=== PATIENT | male | born 1950 | race Hispanic/Latino ===

== ENCOUNTER 2017-04-03 07:53 | Day surgery (SDC) | payer MEDICAID ==
[~2017-04-03] VITALS: Ht 160 cm; Wt 89.1 kg
[~2017-04-03 07:53] MED LIST: ATOR10TA69 PO; D-ME118S13 PO; FINA5TAB41 PO; LORA2TAB2 PO; METO25TA6 PO; PARO10TA71 PO; SODIUM CHLORIDE 0.9% 1000ML 1,000 ML IV ONE; TAMS0.4C32 PO
[2017-04-03 08:00] VITALS: BP 170/89
[2017-04-03] MEDS ORDERED: PROPOFOL 10 MG/ML 20ML VIAL IV ONE (09:41)
== END 2017-04-03 10:58 ==
LOC: ENDO 07:53 → DAH 07:53 → ENDO 10:58
PROVIDERS: ATTEND Internal Medicine
DX: Z09 Encounter for follow-up examination after completed treatment for conditions other than malignant neoplasm (principal); Z86.010 Personal history of colon polyps; K31.89 Other diseases of stomach and duodenum; K63.5 Polyp of colon; K29.60 Other gastritis without bleeding; K57.30 Diverticulosis of large intestine without perforation or abscess without bleeding; K62.1 Rectal polyp; D12.5 Benign neoplasm of sigmoid colon; D12.0 Benign neoplasm of cecum; D12.2 Benign neoplasm of ascending colon; D12.3 Benign neoplasm of transverse colon; E78.5 Hyperlipidemia, unspecified; E11.9 Type 2 diabetes mellitus without complications; I10 Essential (primary) hypertension; K26.9 Duodenal ulcer, unspecified as acute or chronic, without hemorrhage or perforation; K21.9 Gastro-esophageal reflux disease without esophagitis; Z98.890 Other specified postprocedural states; Z68.34 Body mass index [BMI] 34.0-34.9, adult
CPT/HCPCS: 43239; 45380; 45385; 82948 ×2; 88305; 88312; 88342; A4606; J2704; J7030; G9654

== ENCOUNTER 2018-07-13 21:33 | Emergency (ER) | payer MEDICARE ==
[~2018-07-13 21:33] MED LIST changes: -SODIUM CHLORIDE 0.9% 1000ML 1,000 ML IV ONE
[2018-07-13] MEDS ORDERED: MORPHINE SULFATE 4 MG/1ML SYG ONE (22:22)
[2018-07-13] MEDS ORDERED: ONDANSETRON HCL 4 MG/2 ML VIAL ONE (22:22)
[2018-07-13 22:43] LABS: BASOPHILS % (AUTO) 1.2 % (0.0-5.0); EOSINOPHILS % (AUTO) 1.9 % (0.0-8.0); HEMATOCRIT 43.4 % (42-54); LYMPHOCYTES % (AUTO) 39.7 % (21.0-51.0); MEAN CORPUSCULAR HEMOGLOBIN 29.7 pg (27.0-33.0); MEAN CORPUSCULAR HGB CONC 34.7 g/dL (32.0-36.0); MEAN CORPUSCULAR VOLUME 85.8 fL (79-99); MONOCYTES % (AUTO) 6.1 % (3.0-13.0); NEUTROPHILS % (AUTO) 51.1 % (40.0-77.0); PLATELET COUNT (AUTO) 236 K/uL (130-400); RED BLOOD CELL COUNT(AUTO) 5.06 MIL/uL (4.50-6.20); RED CELL DISTRIBUTION WIDTH 13.3 % (11.0-15.5); WHITE BLOOD COUNT (AUTO) 10.1 K/uL (4.8-10.8)
[2018-07-13 22:54] LABS: CREATININE 1.1 mg/dL (0.5-1.5); POTASSIUM 4.2 mmol/L (3.5-5.1)
[2018-07-13 22:59] LABS: BILIRUBIN,TOTAL 0.2 mg/dL (0.2-1.0); TOTAL PROTEIN, SERUM 7.4 g/dL (6.0-8.3)
== END 2018-07-14 00:47 | disposition home or self-care (01) ==
LOC: EDH 21:33
DX: S13.8XXA Sprain of joints and ligaments of other parts of neck, initial encounter (principal); S09.8XXA Other specified injuries of head, initial encounter; M54.5 Low back pain; E11.9 Type 2 diabetes mellitus without complications; I10 Essential (primary) hypertension; Z90.49 Acquired absence of other specified parts of digestive tract; Z87.891 Personal history of nicotine dependence; W18.39XA Other fall on same level, initial encounter; Y93.01 Activity, walking, marching and hiking; Y92.89 Other specified places as the place of occurrence of the external cause; Y99.8 Other external cause status
CPT/HCPCS: 36415; 70450; 71045; 72125; 72128; 72131; 80053; 82550; 84484; 85025; 93005; 96374; 96375; 99285; J2270; J2405

== ENCOUNTER 2021-11-15 13:36 | Emergency (ER) | payer OTHER, MEDICARE ==
[~2021-11-15] VITALS: Ht 157.5 cm; Wt 81.6 kg
[~2021-11-15 13:36] MED LIST changes: -D-ME118S13 PO; +PROM118S5 PO
[2021-11-15 13:40] VITALS: BP 147/79
[2021-11-15] MEDS ORDERED: KETOROLAC 60 MG VIAL (30MG/ML) IM ONE (14:00)
[2021-11-15] MEDS ORDERED: NAPR-1180 PO (14:54)
[2021-11-15] MEDS ORDERED: CYCL10TA16 PO (14:54)
== END 2021-11-15 15:14 | disposition home or self-care (01) ==
LOC: EDH 13:36
DX: S46.912A Strain of unspecified muscle, fascia and tendon at shoulder and upper arm level, left arm, initial encounter (principal); M19.012 Primary osteoarthritis, left shoulder; E11.9 Type 2 diabetes mellitus without complications; I10 Essential (primary) hypertension; Z79.899 Other long term (current) drug therapy; X50.0XXA Overexertion from strenuous movement or load, initial encounter; Y93.89 Activity, other specified; Y92.89 Other specified places as the place of occurrence of the external cause; Y99.8 Other external cause status
CPT/HCPCS: 99283; 73030; 96372; J1885

== ENCOUNTER 2022-10-27 11:45 | Emergency (ER) | payer MEDICARE, OTHER ==
[~2022-10-27] VITALS: Ht 167.6 cm; Wt 83.9 kg
[~2022-10-27 11:45] MED LIST changes: +CYCL10TA16 PO; +NAPR-1180 PO
[2022-10-27] MEDS ORDERED: ACETAMINOPHEN WITH CODEINE 1 TAB TAB PO ONE (13:00)
[2022-10-27 13:33] LABS: APPEARANCE,URINE CLEAR (CLEAR); BILIRUBIN,URINE NEGATIVE (NEGATIVE); COLOR,URINE LIGHT-YELLOW (YELLOW); GLUCOSE, URINE (UA) NEGATIVE (NEGATIVE); KETONES,URINE NEGATIVE (NEGATIVE); LEUKOCYTE ESTERASE ,URINE NEGATIVE Leu/uL (NEGATIVE); NITRATE,URINE NEGATIVE (NEGATIVE); OCCULT BLOOD,URINE NEGATIVE (NEGATIVE); PROTEIN,URINE NEGATIVE (NEGATIVE); UROBILINOGEN,URINE 0.2 mg/dL (0.2-1.0)
[2022-10-27 13:34] LABS: ADD UA MICROSCOPIC NO
[2022-10-27] MEDS ORDERED: CYCL5TAB PO (13:54)
[2022-10-27 14:51] VITALS: BP 142/64; PULSE 60; RESP 18; O2SAT 99
== END 2022-10-27 15:19 | disposition home or self-care (01) ==
LOC: EDH 11:45
DX: S39.92XA Unspecified injury of lower back, initial encounter (principal); E11.9 Type 2 diabetes mellitus without complications; I10 Essential (primary) hypertension; Z79.899 Other long term (current) drug therapy; X58.XXXA Exposure to other specified factors, initial encounter; Y93.89 Activity, other specified; Y92.89 Other specified places as the place of occurrence of the external cause; Y99.8 Other external cause status
CPT/HCPCS: 72131; 81003

== ENCOUNTER 2023-03-21 14:57 | Observation (INO) | payer OTHER ==
[~2023-03-21] VITALS: Ht 157.5 cm; Wt 82.7 kg
[~2023-03-21 14:57] MED LIST changes: +CYCL5TAB PO
[2023-03-21 15:30] LABS: BASOPHILS # (AUTO) 0.04 K/uL (0.00-0.20); BASOPHILS % (AUTO) 0.4 % (0.0-5.0); EOSINOPHILS # (AUTO) 0.05 K/uL (0.00-0.70); EOSINOPHILS % (AUTO) 0.5 % (0.0-8.0); HEMATOCRIT 46.3 % (42-54); IMMATURE GRANULOCYTE ABSOLUTE 0.03 K/uL (0-1); LYMPHOCYTES # (AUTO) 2.7 K/uL (1.0-4.8); LYMPHOCYTES % (AUTO) 26.7 % (21.0-51.0); MEAN CORPUSCULAR HEMOGLOBIN 29.5 pg (27.0-33.0); MEAN CORPUSCULAR HGB CONC 33.5 g/dL (32.0-36.0); MEAN CORPUSCULAR VOLUME 88.2 fL (79-99); MONOCYTES # (AUTO) 0.6 K/uL (0.1-1.0); MONOCYTES % (AUTO) 5.7 % (3.0-13.0); NEUTROPHILS # (AUTO) 6.7 K/uL (1.8-7.7); NEUTROPHILS % (AUTO) 66.4 % (40.0-77.0); PLATELET COUNT (AUTO) 295 K/uL (130-400); RED BLOOD CELL COUNT(AUTO) 5.25 MIL/uL (4.50-6.20); RED CELL DISTRIBUTION WIDTH 12.8 % (11.0-15.5); WHITE BLOOD COUNT (AUTO) 10.1 K/uL (4.8-10.8)
[2023-03-21 15:38] LABS: APPEARANCE,URINE CLEAR (CLEAR); BILIRUBIN,URINE NEGATIVE (NEGATIVE); COLOR,URINE YELLOW (YELLOW); GLUCOSE, URINE (UA) NEGATIVE (NEGATIVE); KETONES,URINE 10 mg/dL (NEGATIVE); LEUKOCYTE ESTERASE ,URINE NEGATIVE Leu/uL (NEGATIVE); NITRATE,URINE NEGATIVE (NEGATIVE); OCCULT BLOOD,URINE NEGATIVE (NEGATIVE); PH,URINE 5.5 (5.0-8.0); PROTEIN,URINE 30 mg/dL (NEGATIVE); UROBILINOGEN,URINE 0.2 mg/dL (0.2-1.0)
[2023-03-21 15:40] LABS: ADD UA MICROSCOPIC YES
[2023-03-21 15:43] LABS: BACTERIA,URINE RARE /HPF (None Seen); MUCUS,URINE FEW LPF (None Seen); RBC,URINE 0-1 /HPF (0-1); SQUAMOUS EPITHELIAL CELL,UR RARE /HPF (0-2)
[2023-03-21 15:46] LABS: CREATININE 1.2 mg/dL (0.5-1.5); POTASSIUM 4.6 mmol/L (3.5-5.1)
[2023-03-21 15:50] LABS: ALBUMIN 4.4 g/dL (3.5-5.0); BILIRUBIN,TOTAL 0.7 mg/dL (0.2-1.0); TOTAL PROTEIN, SERUM 8.6 g/dL (6.0-8.3)
[2023-03-21] MEDS ORDERED: 0.9%NACL 1000ML 1,000 ML IV ONE ×2 (16:00→21:30)
[2023-03-21] MEDS ORDERED: PANTOPRAZOLE 40 MG/VIAL IVP ONE (17:30)
[2023-03-21] MEDS ORDERED: IOHEXOL-350 75 ML VIAL IV ONE (18:57)
[2023-03-21] MEDS ORDERED: ACETAMINOPHEN 325 MG TAB PO ONE (19:00)
[2023-03-21] MEDS ORDERED: CEFTRIAXONE 2GM VIAL IVPB ONE (21:30)
[2023-03-22] MEDS ORDERED: MORPHINE 2 MG SYG IV PRN (03:00)
[2023-03-22] MEDS ORDERED: POTASSIUM CHLORIDE 20MEQ/100ML 100 ML IV PRN (03:00)
[2023-03-22] MEDS ORDERED: MAGNESIUM 2GM PREMIX 50ML 50 ML IV PRN (03:00)
[2023-03-22] MEDS ORDERED: POTASSIUM CHLORIDE 10% ELIXIR 20 MEQ/15 ML UDCUP PO PRN (03:00)
[2023-03-22] MEDS ORDERED: ACETAMINOPHEN 325 MG TAB PO PRN ×2 (03:00)
[2023-03-22] MEDS ORDERED: ONDANSETRON 4MG INJ IV PRN (03:00)
[2023-03-22] MEDS ORDERED: MORPHINE 4 MG SYG IV PRN (03:00)
[2023-03-22] MEDS ORDERED: LACTATED RINGERS IV ONE (03:00)
[2023-03-22] MEDS ORDERED: KCL 20 MEQ ERTAB PO PRN (03:00)
[2023-03-22 07:01] LABS: BASOPHILS # (AUTO) 0.03 K/uL (0.00-0.20); BASOPHILS % (AUTO) 0.3 % (0.0-5.0); EOSINOPHILS # (AUTO) 0.18 K/uL (0.00-0.70); HEMATOCRIT 38.4 % (42-54); IMMATURE GRANULOCYTE ABSOLUTE 0.03 K/uL (0-1); LYMPHOCYTES % (AUTO) 33.8 % (21.0-51.0); MEAN CORPUSCULAR HEMOGLOBIN 29.4 pg (27.0-33.0); MEAN CORPUSCULAR HGB CONC 33.6 g/dL (32.0-36.0); MEAN CORPUSCULAR VOLUME 87.5 fL (79-99); MONOCYTES # (AUTO) 0.7 K/uL (0.1-1.0); MONOCYTES % (AUTO) 7.4 % (3.0-13.0); NEUTROPHILS % (AUTO) 56.2 % (40.0-77.0); PLATELET COUNT (AUTO) 255 K/uL (130-400); RED BLOOD CELL COUNT(AUTO) 4.39 MIL/uL (4.50-6.20); WHITE BLOOD COUNT (AUTO) 8.9 K/uL (4.8-10.8)
[2023-03-22 07:13] LABS: MAGNESIUM 1.9 mg/dL (1.80-2.40); PHOSPHORUS 3.5 mg/dL (2.5-4.9); POTASSIUM 3.9 mmol/L (3.5-5.1)
[2023-03-22 07:18] LABS: HEMOGLOBIN A1C 7.1 % (4.0-6.0)
[2023-03-22] MEDS: INSULIN HUMULIN R 100 UNIT/ML 3ML SQ SCH ×4 (07:30→20:29)
[2023-03-22 08:00] VITALS: BP 170/75; PULSE 84; RESP 18
[2023-03-22] MEDS: ENOXAPARIN SODIUM 40 MG/0.4 ML SYRINGE SQ SCH (09:45)
[2023-03-22] MEDS: FAMOTIDINE 20MG TAB PO SCH (09:45)
[2023-03-22] MEDS ORDERED: HYDRALAZINE 20MG/ML VIAL IV PRN (11:00)
[2023-03-22] MEDS ORDERED: LABETALOL 20MG VIAL IV PRN (11:00)
[2023-03-22] MEDS ORDERED: HYDRALAZINE 20MG/ML VIAL ONE (11:08)
[2023-03-22] MEDS: LOSARTAN 50 MG TABLET PO SCH ×2 (11:09→20:25)
[2023-03-22 12:02] VITALS: BP 170/68; PULSE 65; RESP 17
[2023-03-22] MEDS ORDERED: METF-446 PO (14:48)
[2023-03-22] MEDS ORDERED: ATOR10 PO (14:48)
[2023-03-22] MEDS ORDERED: GLIP-162 PO (14:48)
[2023-03-22] MEDS ORDERED: ICOS1CAP2 PO (14:48)
[2023-03-22 15:59] VITALS: BP 135/77; PULSE 75; RESP 14
[2023-03-22 19:55] VITALS: BP 150/84; PULSE 64; RESP 13
[2023-03-22] MEDS ORDERED: LORA2TAB80 PO (20:02)
[2023-03-22 20:50] VITALS: BP 159/71; PULSE 70; RESP 20
[2023-03-23 00:32] VITALS: BP 143/80; PULSE 69; RESP 19
[2023-03-23 03:51] LABS: BASOPHILS # (AUTO) 0.03 K/uL (0.00-0.20); BASOPHILS % (AUTO) 0.3 % (0.0-5.0); EOSINOPHILS # (AUTO) 0.16 K/uL (0.00-0.70); EOSINOPHILS % (AUTO) 1.8 % (0.0-8.0); HEMATOCRIT 39.6 % (42-54); IMMATURE GRANULOCYTE ABSOLUTE 0.02 K/uL (0-1); LYMPHOCYTES # (AUTO) 3.2 K/uL (1.0-4.8); MEAN CORPUSCULAR HEMOGLOBIN 29.3 pg (27.0-33.0); MEAN CORPUSCULAR HGB CONC 33.6 g/dL (32.0-36.0); MEAN CORPUSCULAR VOLUME 87.2 fL (79-99); MONOCYTES # (AUTO) 0.6 K/uL (0.1-1.0); MONOCYTES % (AUTO) 7.2 % (3.0-13.0); NEUTROPHILS # (AUTO) 4.8 K/uL (1.8-7.7); NEUTROPHILS % (AUTO) 54.5 % (40.0-77.0); PLATELET COUNT (AUTO) 268 K/uL (130-400); RED BLOOD CELL COUNT(AUTO) 4.54 MIL/uL (4.50-6.20); RED CELL DISTRIBUTION WIDTH 13.2 % (11.0-15.5); WHITE BLOOD COUNT (AUTO) 8.8 K/uL (4.8-10.8)
[2023-03-23 04:22] VITALS: BP 132/61; PULSE 62; RESP 20
[2023-03-23] MEDS: INSULIN HUMULIN R 100 UNIT/ML 3ML SQ SCH (06:17)
[2023-03-23 07:55] VITALS: O2SAT 100
[2023-03-23 08:00] VITALS: BP 104/54; PULSE 55; RESP 18
[2023-03-23] MEDS: FAMOTIDINE 20MG TAB PO SCH (09:42)
[2023-03-23] MEDS: LOSARTAN 50 MG TABLET PO SCH (09:42)
[2023-03-23] MEDS: ENOXAPARIN SODIUM 40 MG/0.4 ML SYRINGE SQ SCH (09:42)
[2023-03-23 12:00] VITALS: BP 140/72; PULSE 71; RESP 20
[2023-03-23] MEDS ORDERED: LOSA-418 PO (14:21)
== END 2023-03-23 15:15 | disposition home or self-care (01) ==
LOC: EDH 14:57 → EDHIP 03-22 00:51 → INTOOBSV 03-22 00:51 → 4BH 03-22 20:33
PROVIDERS: ADMIT Internal Medicine; ATTEND Internal Medicine
DX: I11.9 Hypertensive heart disease without heart failure (principal); R91.8 Other nonspecific abnormal finding of lung field; R79.89 Other specified abnormal findings of blood chemistry; E11.9 Type 2 diabetes mellitus without complications; N40.0 Benign prostatic hyperplasia without lower urinary tract symptoms; F41.9 Anxiety disorder, unspecified; F32.A Depression, unspecified; R07.9 Chest pain, unspecified; I95.9 Hypotension, unspecified; G89.29 Other chronic pain; Z79.899 Other long term (current) drug therapy
CPT/HCPCS: 96375; 96361 ×2; 99285; 83735 ×2; 84484 ×2; 80053; 83690; 85025 ×3; 85378; 87040 ×2; 83605 ×2; 81001; 36415 ×3; 71045; 71270; 76705; 93005 ×2; 96372 ×2; 96365; 96366; 83036; 84100; 80048 ×2; 83880; 82948 ×4; 93970; 84145; J7030 ×2; J0696; C9113; Q9967; J3475; J0360; J1650 ×2; G0378 ×2

== ENCOUNTER 2024-11-25 19:33 | Emergency (ER) | payer OTHER, MEDICAID ==
[~2024-11-25] VITALS: Ht 172.7 cm; Wt 83.0 kg
[~2024-11-25 19:33] MED LIST changes: +ATOR10 PO; -ATOR10TA69 PO; -CYCL10TA16 PO; -CYCL5TAB PO; +CYCL5TAB3 PO; +GLIP-300 PO; +ICOS1CAP2 PO; -LORA2TAB2 PO; +LOSA-418 PO; +METF-446 PO; -NAPR-1180 PO; -PROM118S5 PO
--- NOTE | 2024-11-25 20:18 | ERN ---
ED Note History of Present Illness Stated Complaint: C/O RT KNEE PAIN, LOWER BACK PAIN AFTER FALL Chief Complaint: Mechanical Fall Time Seen by MD: 19:37 Dictation: 74-year-old male presents to ER complains of falling while at the store. He says he attempted to carry a 50 lb dog food bag but he stepped on some dog food that was on the floor and lost his balance and fell. Now has right knee pain a nd low back pain. Allergies: Coded Allergies: No Known Allergies (Unverified Allergy, Unknown, 04/02/17) Home Meds Active Scripts Naproxen (Naproxen) 375 Mg Tablet, 375 MG PO BID for 10 Days, #20 TAB 0 Refills Prov:ANNY PANTOJA NP 11/25/24 Losartan Potassium (Cozaar) 50 Mg Tablet, 50 MG PO BID, #60 TAB 0 Refills Prov:CRUZ ALVARENGA MD 03/23/23 Cyclobenzaprine HCl (Cyclobenzaprine HCl) 5 Mg Tablet, 5 MG PO TID for 3 Days, #9 TAB Prov:ERICK ELDRIDGEP 10/27/22 Reported Medications Icosapent Ethyl (Icosapent Ethyl) 1 Gram Capsule, 2 GM PO BID, CAP 03/22/23 Atorvastatin Calcium (LIPITOR) 20 Mg Tab, 20 MG PO HS, TAB 03/22/23 Glipizide (Glipizide ER) 5 Mg Tab.er.24, 5 MG PO DAILY 03/22/23 Metformin HCl (Metformin HCl) 1,000 Mg Tablet, 1000 MG PO BID, TAB 03/22/23 Paroxetine HCl (Paroxetine HCl) 10 Mg Tablet, 10 MG PO DAILY, TAB 04/02/17 Finasteride (Finasteride) 5 Mg Tablet, 5 MG PO DAILY, TAB 04/02/17 Metoprolol Tartrate (Metoprolol Tartrate) 25 Mg Tablet, 25 MG PO BID, TAB 04/02/17 Tamsulosin HCl (Tamsulosin HCl) 0.4 Mg Cap.er.24h, 0.4 MG PO DAILY, CAPSULE. 04/02/17 Past Medical History Past Medical History: Diabetes-Type II, Hypertension Surgical History: Appendectomy Surgical History Other: NECK Family History: Negative Social History: Negative Review of System Dictation Constitutional: Negative for fever,chills, and weight loss Eyes: Negative for injury, pain,redness, and discharge ENT: Negative for injury,pain or swelling Cardiovascular: Negative for chest pain, palpitations, and edema Respiratory: Negative for shortness of breath, cough, wheezing, and pleuritic chest pain Abdomen/GI: Negative for abdominal pain, nausea, vomiting, diarrhea, and constipation Back: Positive for pain : Negative for injury, bleeding and discharge MS/Extremity: Positive for injury to right knee Skin: Negative for rash, and discoloration Neuro: Negative for headache, weakness, numbness, tingling, and seizure Psych: Negative for suicide ideation, homicidal ideation, and hallucinations Allergy/Immunology: Negative for hives, rash, and allergies ALL SYSTEMS NEGATIVE, EXCEPT NOTED ABOVE. Initial Vital Sign VS Vital Signs Date Time Temp Pulse Resp B/P (MAP) Pulse Ox O2 Delivery O2 Flow Rate FiO2 11/25/24 19:35 97.9 96 20 117/70 100 Room Air Physical Exam Dictation General: awake, alert, NAD Head/Face: Normocephalic, atraumatic Eyes: PERRL, EOMI, vision at baseline ENT: oral cavity clear, TMs clear, no signs of infection Neck: Trachea midline, supple, no nuchal rigidity Cardiovascular: RRR, normal S1/S2, No MRGs, no JVD Respiratory: CTAB, no respiratory distress, No rales or wheezes Abdomen: Soft, non-tender, non-distended, normal bowel sounds, no guarding or rebound. Skin: Warm, dry, normal turgor, no rash MS/Extremity: Pulses equal, no cyanosis, neurovascular intact, pain with range of motion to right knee and low back Neuro: COAx4, GCS 15, strength 5/5, CN 2-12 intact, normal cerebellar exam, normal gait, Psych: Normal behavior, mood, and affect normal Results (Laboratory/Radiology) X-RAY Comment: EXAM: XR Knee, 3 Views. CLINICAL HISTORY: 74 year old male with fall and pain. COMPARISON: None provided. FINDINGS: BONES: No acute fracture or focal osseous lesion. JOINTS: No dislocation. The joint spaces are normal. SOFT TISSUES: The soft tissues are unremarkable. IMPRESSION: 1. No acute osseous abnormality. : CR Lumbar Spine, 3 views CLINICAL HISTORY: Fall. Pain. COMPARISON: CT lumbar spine dated 10/27/2022. FINDINGS: Mild levoscoliosis of the lumbar spine. Mild osteopenia. Moderate spondylosis and mild degenerative disc space narrowing at multiple levels, most pronounced at L3-L4 and L5-S1. Normal vertebral body heights. No acute fracture. Atherosclerotic vascular calcification is present. IMPRESSION: No acute fracture. Mild levoscoliosis. Osteopenia and degenerative changes. No gross changes within the limits of cross-modality comparison. Course ED Course Orders Procedure Category Date Status Time Knee 3vws Rt RAD 11/25/24 Resulted 19:41 Lumbar Spine 2-3vws RAD 11/25/24 Resulted 19:41 Ketorolac PHA 11/25/24 Complete Tromethamine 30mg/Ml 20:30 Current Medications Medications (Trade) Dose Ordered Sig/Jewel Route PRN Reason Start Time Stop Time Status Last Admin Dose Admin Ketorolac Tromethamine (toRADol) 30 mg ONCE ONCE IM 11/25/24 20:30 11/25/24 20:31 DC Vital Signs Date Time Temp Pulse Resp B/P (MAP) Pulse Ox O2 Delivery O2 Flow Rate FiO2 11/25/24 19:35 97.9 96 20 117/70 100 Room Air Medical Decision Making MDM 74-year-old male presents to ER complains of falling while at the store. He says he attempted to carry a 50 lb dog food bag but he stepped on some dog food that was on the floor and lost his balance and fell. Now has right knee pain and low back pain. MDM: Differential diagnosis: Fracture, contusion, back strain, Rationale: Tests considered and ordered secondary to shared decision making include: labs, ECG and radiology Previous outside records reviewed: Old ER visits. Risk of complication and/or morbidity or mortality of patient management: None Medications-Per medication reconciliation Need for hospitalization: Patient does NOT meet criteria for hospitalization. Need for emergency major/minor surgery: No There are no social concerns with this patient. Prescription drug management Prescriptions will include symptomatic care Patient's prior external medical records from other ER visits were reviewed by me as indicated. Prior testing and results from previous visits were reviewed. Prior tests were taken into account with medical decision making and resource utilization, independent historian/historians were used to obtain complete medical history. I independently interpreted the test that were performed, results were reviewed by me and considered findings on radiology if ordered. Patient VSS, NAD, nontoxic, stable for discharge. Pt given discharge instructions in layman terms and understood, all questions answered. Pt will follow up with PCP and return to the ER if worse. DX & DISP Disposition: Discharge Departure Impression: Primary Impression: Fall Additional Impressions: Back pain, Contusion of right knee Condition: Stable Scripts Naproxen (Naproxen) 375 Mg Tablet 375 MG PO BID for 10 Days, #20 TAB 0 Refills Prov: ANNY PANTOJA NP 11/25/24 Additional Instructions: NO FRACTURES ON YOUR XRAYS. FOLLOW-UP WITH YOUR PCP IN 24-72 HOURS AND IN THE EVENT IF SYMPTOMS WORSEN OR AN EMERGENCY OVERNIGHT REPORT TO THE ED IMMEDIATELY Referrals: GUTIERREZ JACKSON (PCP) ANNY PANTOJA NP Nov 25, 2024 20:18
--- NOTE | 2024-11-25 21:25 | HMCIMG ---
EXAM: XR Knee, 3 Views. CLINICAL HISTORY: 74 year old male with fall and pain. COMPARISON: None provided. FINDINGS: BONES: No acute fracture or focal osseous lesion. JOINTS: No dislocation. The joint spaces are normal. SOFT TISSUES: The soft tissues are unremarkable. IMPRESSION: 1. No acute osseous abnormality. /[place]
[2024-11-25] MEDS ORDERED: NAPR-1192 PO (21:33)
--- NOTE | 2024-11-25 21:43 | HMCIMG ---
EXAM: CR Lumbar Spine, 3 views CLINICAL HISTORY: Fall. Pain. COMPARISON: CT lumbar spine dated 10/27/2022. FINDINGS: Mild levoscoliosis of the lumbar spine. Mild osteopenia. Moderate spondylosis and mild degenerative disc space narrowing at multiple levels, most pronounced at L3-L4 and L5-S1. Normal vertebral body heights. No acute fracture. Atherosclerotic vascular calcification is present. IMPRESSION: No acute fracture. Mild levoscoliosis. Osteopenia and degenerative changes. No gross changes within the limits of cross-modality comparison. /[place]
[2024-11-25 22:51] VITALS: BP 150/79; PULSE 76; RESP 18; TEMP 98.3; O2SAT 98
== END 2024-11-25 22:54 | disposition home or self-care (01) ==
LOC: EDH 19:33
DX: S80.01XA Contusion of right knee, initial encounter (principal); M54.50 Low back pain, unspecified; E11.9 Type 2 diabetes mellitus without complications; I10 Essential (primary) hypertension; Z79.84 Long term (current) use of oral hypoglycemic drugs; Z79.899 Other long term (current) drug therapy; Z90.49 Acquired absence of other specified parts of digestive tract; W01.0XXA Fall on same level from slipping, tripping and stumbling without subsequent striking against object, initial encounter; Y93.89 Activity, other specified; Y92.89 Other specified places as the place of occurrence of the external cause; Y99.8 Other external cause status
CPT/HCPCS: 99284; 73562; 72100; 96372; J1885

== ENCOUNTER 2025-02-20 22:58 | Emergency (ER) | payer OTHER, MEDICAID ==
[~2025-02-20] VITALS: Ht 154.9 cm; Wt 81.6 kg
--- NOTE | 2025-02-20 23:01 | NUR ---
REPORT TO YUE KEENAN
--- NOTE | 2025-02-20 23:03 | NUR ---
REPORT TO REGISTRATION, EXPLAINED PT UNABLE TO READ
[2025-02-21 00:26] LABS: CREATININE 1.0 mg/dL (0.5-1.3); GLOMERULAR FILTR. RATE CALC 80.0 mL/min (>90); GLUCOSE,RANDOM 128.0 mg/dL (70-105); SODIUM SERUM 142.0 mmol/L (136-145); UREA NITROGEN, BLOOD 17.0 mg/dL (7-18)
[2025-02-21 00:34] LABS: IMMATURE GRANULOCYTE ABSOLUTE 0.05 K/uL (0-1); NUCLEATED RED BLOOD CELLS 0.0 % (0.0-0.19); PLATELET COUNT (AUTO) 278 K/uL (130-400); RED BLOOD CELL COUNT(AUTO) 4.64 MIL/uL (4.50-6.20); RED CELL DISTRIBUTION WIDTH 12.7 % (11.0-15.5); WHITE BLOOD COUNT (AUTO) 13.3 K/uL (4.8-10.8)
--- NOTE | 2025-02-21 00:57 | ERN ---
ED Note History of Present Illness Stated Complaint: CAT BITE TO RT ANKLE Chief Complaint: Animal Bite Time Seen by MD: 23:00 Time Seen by Midlevel: 23:00 Dictation: The patient is a 74-year-old male with a past medical history of diabetes, hypertension who presents to the emergency department with complaints of redness to right ankle after he was bitten by a cat a week ago. Patient reports that it was his cat and the cat was coming over to grab some food and he attempted to stop the cat from coming forward which then caused the cat to bite him in the right ankle. Patient reports he is up-to-date with the tetanus and got it a year ago. Patient denies any current antibiotic use. Denies any fevers. Allergies: Coded Allergies: No Known Allergies (Unverified Allergy, Unknown, 04/02/17) Home Meds Active Scripts Naproxen (Naproxen) 375 Mg Tablet, 375 MG PO BID for 10 Days, #20 TAB 0 Refills Prov:ANNY PANTOJA LOGGING SUPERINTENDENT 11/25/24 Losartan Potassium (Cozaar) 50 Mg Tablet, 50 MG PO BID, #60 TAB 0 Refills Prov:CRUZ ALVARENGA MD 03/23/23 Cyclobenzaprine HCl (Cyclobenzaprine HCl) 5 Mg Tablet, 5 MG PO TID for 3 Days, #9 TAB Prov:ERICK ELDRIDGE V LOGGING SUPERINTENDENT 10/27/22 Reported Medications Icosapent Ethyl (Icosapent Ethyl) 1 Gram Capsule, 2 GM PO BID, CAP 03/22/23 Atorvastatin Calcium (LIPITOR) 20 Mg Tab, 20 MG PO HS, TAB 03/22/23 Glipizide (Glipizide ER) 5 Mg Tab.er.24, 5 MG PO DAILY 03/22/23 Metformin HCl (Metformin HCl) 1,000 Mg Tablet, 1000 MG PO BID, TAB 03/22/23 Paroxetine HCl (Paroxetine HCl) 10 Mg Tablet, 10 MG PO DAILY, TAB 04/02/17 Finasteride (Finasteride) 5 Mg Tablet, 5 MG PO DAILY, TAB 04/02/17 Metoprolol Tartrate (Metoprolol Tartrate) 25 Mg Tablet, 25 MG PO BID, TAB 04/02/17 Tamsulosin HCl (Tamsulosin HCl) 0.4 Mg Cap.er.24h, 0.4 MG PO DAILY, CAPSULE. 04/02/17 Past Medical History Past Medical History: Diabetes-Type II, Hypertension Surgical History: Appendectomy Surgical History Other: NECK, CARDIAC STENTS Family History: Negative Social History: Negative RN Note Reviewed/Agreed w/PFSH: Yes Review of System Dictation Constitutional: Negative for fever,chills, and weight loss Eyes: Negative for injury, pain,redness, and discharge ENT: Negative for injury,pain or swelling Cardiovascular: Negative for chest pain, palpitations, and edema Respiratory: Negative for shortness of breath, cough, and wheezing, Abdomen/GI: Negative for abdominal pain, nausea, vomiting, diarrhea, and constipation Back: Negative for injury and pain : Negative for injury, bleeding and discharge MS/Extremity: Negative for injury and deformity Skin: Negative for rash, and discoloration positive for redness Neuro: Negative for headache, weakness, numbness, tingling, and seizure Psych: Negative for suicide ideation, homicidal ideation, and hallucinations Initial Vital Sign VS Vital Signs Date Time Temp Pulse Resp B/P (MAP) Pulse Ox O2 Delivery O2 Flow Rate FiO2 02/20/25 23:00 97.7 92 20 127/72 97 Room Air Physical Exam Dictation Vital Signs reviewed General Appearance: Alert, oriented x 3, no acute distress, well developed, nourished. Head and Face: non-traumatic. Eyes: PERRL, pink conjunctivas, eyelid no trauma, anterior chamber with arcus senilis. Ears: Pinnas intact and no signs of trauma or erythema ear canals clear and no discharge TM no erythema Nose: No discharge, no bleeding. Oropharynx: Mouth normal, tongue pink. pharynx clear,no erythema, tonsils no exudates, no abscesses noted, mucous membrane moist Neck: Supple, non-tender, no thyromegaly, no masses, no JVD, no bruits Breast:Deferred Chest:No tenderness, no crepitus, no paradoxical movement, no retractions Lungs:Clear, well-ventilated, symmetric, no rales, no wheezing, no rhonchi, no stridor, good breath sounds bilaterally Heart: Regular rate, regular rhythm, no murmur, no gallops Vascular: no peripheral edema, Abdomen: Soft, positive bowel sounds, nondistended, no guarding, nontender, no rebound, no masses no hepatomegaly, no splenomegaly, no Almeida's sign, no hernias. Rectal: Deferred Genital: Deferred Neurological: Normal speech, motor function intact, sensory function intact Musculoskeletal: Neck nontender, full range of motion, back nontender, full range of motion, Extremities: nontender, full range of motion Skin: Color pink, dry, no turgor, no rash, no lacerations, no abrasions, no contusions. Erythema noted to right lower leg about 4 cm in diameter, small scab wound less than 0.5 cm, no drainage Lymphatic: Deferred Results (Laboratory/Radiology) Laboratory/Radiology Laboratory Tests Test 02/21/25 00:09 White Blood Count 13.3 K/uL (4.8-10.8) H Red Blood Count 4.64 MIL/uL (4.50-6.20) Hemoglobin 13.7 g/dL (14.0-18.0) L Hematocrit 42.1 % (42-54) Mean Corpuscular Volume 90.7 fL (79-99) Mean Corpuscular Hemoglobin 29.5 pg (27.0-33.0) Mean Corpuscular Hemoglobin Concent 32.5 g/dL (32.0-36.0) Red Cell Distribution Width 12.7 % (11.0-15.5) Platelet Count 278 K/uL (130-400) Mean Platelet Volume 9.7 fL (7.5-10.5) Immature Granulocyte % (Auto) 0.4 % (0-1) Neutrophils (%) (Auto) 68.2 % (40.0-77.0) Lymphocytes (%) (Auto) 22.5 % (21.0-51.0) Monocytes (%) (Auto) 6.7 % (3.0-13.0) Eosinophils (%) (Auto) 1.8 % (0.0-8.0) Basophils (%) (Auto) 0.4 % (0.0-5.0) Neutrophils # (Auto) 9.1 K/uL (1.8-7.7) H Lymphocytes # (Auto) 3.0 K/uL (1.0-4.8) Monocytes # (Auto) 0.9 K/uL (0.1-1.0) Eosinophils # (Auto) 0.24 K/uL (0.00-0.70) Basophils # (Auto) 0.05 K/uL (0.00-0.20) Absolute Immature Granulocyte (auto 0.05 K/uL (0-1) Nucleated Red Blood Cells 0.0 % (0.0-0.19) Sodium Level 142 mmol/L (136-145) Potassium Level 4.1 mmol/L (3.5-5.1) Chloride Level 104 mmol/L (101-111) Carbon Dioxide Level 29 mmol/L (21-32) Blood Urea Nitrogen 17 mg/dL (7-18) Creatinine 1.0 mg/dL (0.5-1.3) Glomerular Filtration Rate Calc 80 mL/min (>90) Random Glucose 128 mg/dL (70-105) H Total Calcium 9.1 mg/dL (8.5-10.1) Labs Reviewed?: Yes ED Course ED Course Orders Procedure Category Date Status Time Cbc With Differential LAB 02/20/25 Complete 23:42 Basic Metabolic Panel LAB 02/20/25 Complete 23:42 *Nursing CPOE 02/21/25 Transmitted Communication: 00:27 Amox/Clav 875/125mg PHA 02/21/25 In Process Tab (Augmentin 875-1 01:00 Current Medications Medications (Trade) Dose Ordered Sig/Jewel Route PRN Reason Start Time Stop Time Status Last Admin Dose Admin Amoxicillin/ Clavulanate Potassium (Augmentin 875-125 Tablet) 1 each ONCE ONCE PO 02/21/25 01:00 02/21/25 01:01 Vital Signs Date Time Temp Pulse Resp B/P (MAP) Pulse Ox O2 Delivery O2 Flow Rate FiO2 02/20/25 23:00 97.7 92 20 127/72 97 Room Air Medical Decision Making MDM The patient is a 74-year-old male with a past medical history of diabetes, hypertension who presents to the emergency department with complaints of redness to right ankle after he was bitten by a cat a week ago. Patient reports that it was his cat and the cat was coming over to grab some food and he attempted to stop the cat from coming forward which then caused the cat to bite him in the right ankle. Patient reports he is up-to-date with the tetanus and got it a year ago. Patient denies any current antibiotic use. Denies any fevers. CBC showed mild leukocytosis, mild anemia, chemistry showed no electrolyte imbalance, patient has localized erythema to the lateral right lower leg about 4 cm in diameter, there is a small scabbed wound about less than 0.5 cm, mild swelling, there is no drainage. Patient has not been taking any antibiotics so high spoke to patient about starting him on antibiotics and having him follow up with the his doctor. Patient with no fevers, nontoxic appearance. Patient is instructed to follow up with animal control for follow up on his cat bite and further evaluation of the cat to evaluate for rabies. Patient instructed to return to ER if he develops fever or the cellulitis spreads up his upper leg or worsens. Patient's agrees with discharge planning. We will start patient on Augmentin as outpatient. Differential diagnosis: Cellulitis, sepsis, electrolyte imbalance Need for hospitalization: Patient does not meet criteria for hospitalization. There are no social concerns with this patient. DX & DISP Disposition: Discharge Departure Impression: Primary Impression: Infected cat bite of lower leg Condition: Stable Scripts Amoxicillin/Potassium Clav (Amox Tr-K Clv 875-125 mg Tab) 875 Mg-125 Mg Tablet 1 TAB PO BID for 10 Days, #20 TAB 0 Refills Prov: ANGÉLICA RAMIREZ 02/21/25 Additional Instructions: Please take your antibiotics as prescribed. Follow up with the your primary doctor in 1-2 days. Follow up with animal control. If you develop fevers, redness does not improve or worsens or if anything changes please return to ER. FOLLOW-UP WITH PRIMARY CARE PROVIDER IN 1 TO 2 DAYS. TAKE MEDICATIONS DIRECTED HERE IN THE EMERGENCY ROOM. OKAY TO CONTINUE HOME MEDICATIONS UNLESS OTHERWISE DISCUSSED DURING YOUR VISIT IN THE EMERGENCY ROOM TODAY. RETURN TO YOUR NEAREST EMERGENCY ROOM IF SYMPTOMS WORSEN OR IF THERE IS NO IMPROVEMENT. CALL 911 IF YOU NEED IMMEDIATE ASSISTANCE. TAKE TYLENOL [id number] NEEDED AND IF NO CONTRAINDICATIONS ARE PRESENT. INCREASE ORAL HYDRATION. A WOUND CULTURE OR URINE CULTURE WAS ORDERED HERE IN THE EMERGENCY ROOM DEPARTMENT PLEASE FOLLOW-UP WITH PRIMARY CARE PROVIDER AND ADVISE THEM TO GET REPEAT PORTS FROM OUR FACILITY. IF YOU HAD ANY GLENDA WRAP/SPLINTS THAT WERE APPLIED HERE, PLEASE DO NOT REMOVE THEM UNTIL YOU SEE YOUR PRIMARY CARE OR SPECIALTY. Referrals: NUPUR JACKSON MD (PCP) Time of Disposition: 01:04 I have reviewed the case, and I agree with, Diagnosis and Plan ANGÉLICA RAMIREZ Feb 21, 2025 00:57
[2025-02-21] MEDS ORDERED: AMOX/CLAV 875/125MG TAB PO ONE (01:00)
[2025-02-21 01:02] VITALS: BP 118/67; PULSE 90; RESP 18; TEMP 98; O2SAT 98
--- NOTE | 2025-02-21 01:05 | NUR ---
MESSAGE LEFT FOR ANIMAL CONTRAL; ARLEY PRINCE NOTIFED; PER DISPATCH BITE OCCURED OUTSIDE OF JURISDICTION NUMBER;[phone]
== END 2025-02-21 01:12 | disposition home or self-care (01) ==
LOC: EDH 22:58
DX: S81.851A Open bite, right lower leg, initial encounter (principal); E11.9 Type 2 diabetes mellitus without complications; I10 Essential (primary) hypertension; Z79.84 Long term (current) use of oral hypoglycemic drugs; Z79.899 Other long term (current) drug therapy; Z90.49 Acquired absence of other specified parts of digestive tract; Z95.5 Presence of coronary angioplasty implant and graft; W55.01XA Bitten by cat, initial encounter; Y93.89 Activity, other specified; Y92.89 Other specified places as the place of occurrence of the external cause; Y99.8 Other external cause status
CPT/HCPCS: 36415; 80048; 85025; 99283